=== PATIENT | female | born 1955 | race Caucasian/White ===

== ENCOUNTER → 2016-06-28 07:33 | Outpatient (CLI) | payer BC | END | disposition home or self-care (01) | LOC: D.US 07:33 | DX: R10.11 Right upper quadrant pain (principal) ==

== ENCOUNTER → 2016-07-05 12:46 | Outpatient (CLI) | payer BC | END | disposition home or self-care (01) | LOC: D.NM 12:46 | DX: R10.11 Right upper quadrant pain (principal) ==

== ENCOUNTER 2016-08-16 05:48 | Day surgery (SDC) | payer BC ==
[2016-08-15 12:46] LABS: BASOPHILS 0.6 % (0-2); HEMATOCRIT 37.3 % (36.0-48.0); HEMOGLOBIN 12.1 g/dL (12-16); IMMATURE GRANULOCYTES 0.2 % (0-5); MCHC 32.4 g/dL (31.0-37.0); MCV 95.6 fL (80.0-100.0); MEAN PLATELET VOLUME 11.7 fL (7.4-10.4); MONOCYTES 12.1 % (2-11); NEUTROPHILS 54.1 % (40-80); PLATELET COUNT 206 10x3/uL (130-400); WBC 5.2 10x3/uL (4.8-10.8)
[2016-08-15 12:58] LABS: ANION GAP 8.5 mmol/L (8-16); CALCIUM 8.9 mg/dL (8.5-10.1); CARBON DIOXIDE 32.7 mmol/L (21.0-32.0); CREATININE - SERUM 0.9 mg/dL (0.6-1.3); POTASSIUM - SERUM 4.2 mmol/L (3.5-5.1)
[2016-08-15 14:16] LABS: INR 0.96 (0.85-1.17); PROTIME 12.6 SECONDS (11.6-15.0)
[~2016-08-16] VITALS: Ht 162.6 cm; Wt 71.2 kg
--- NOTE | ~2016-08-16 | OP ---
PATIENT NAME: JAKE MACIEL MEDICAL RECORD: [id number] :51 LOCATION:D.OPS ADMISSION DATE: SURGEON: KAYODE WALTON MD DATE OF OPERATION: 08/16/2016 PREOPERATIVE DIAGNOSIS: Biliary dyskinesia. POSTOPERATIVE DIAGNOSES: 1. Biliary dyskinesia. 2. Gallstones. PROCEDURE: Laparoscopic cholecystectomy. SURGEON: Kayode Walton MD. REPORT OF PROCEDURE: The patient's abdomen was prepped and draped in sterile fashion. A cutdown was made on the superior aspect of the umbilicus, 0 Vicryls were placed in the fascia bilaterally and the fascia was incised with a 15-blade. I then bluntly entered the peritoneal cavity and placed a 12-mm Shira port under direct visualization. A 5-mm trocar was placed in the epigastrium and 2 more 5-mm trocars were placed in the right subcostal region. The gallbladder was grasped and elevated. There was no sign of any inflammatory changes. The cystic artery and cystic duct were dissected free and these were clipped proximally and distally and ligated in standard fashion. Upon palpating the gallbladder, I can feel there was a large stone present in the infundibulum. The gallbladder was then taken off the liver bed using electrocautery and placed into the right upper quadrant. Any bleeding from the liver bed was then treated with electrocautery. We irrigated out the right upper quadrant and assured there was no sign of any bleeding or bile leakage. At this point, the ports and insufflation were then removed and the gallbladder was taken out through the umbilicus. The umbilical fascia was closed with interrupted 0 Vicryls times 3. The wounds were irrigated out with normal saline then infused with 10 mL of 0.25% Marcaine with epinephrine. The skin incisions were all closed with subcutaneous 5-0 Monocryl and dressed appropriately. COMPLICATIONS: None. CONDITION: Stable. ANESTHESIA: General endotracheal and local. BLOOD LOSS: Minimal. TRANSINT:[id number] Voice Confirmation ID: [id number] DOCUMENT ID: [id number] KAYODE WALTON MD CC: PAULA HWANG MD [id number] DICTATION DATE: 08/16/16 1119 [employer] EDITOR: 08/16/162032 [facility] 08/16/16 [id number] [place] [address]
[~2016-08-16 05:48] MED LIST: PROTONIX40 MG PO; VITAMIN D31000 UNI2 PO
[2016-08-16 07:35] VITALS: BP 142/87; Ht 162.6 cm; Wt 71.2 kg
[2016-08-16] MEDS ORDERED: HYDROCODONE-APA1 TAB PO (11:15)
--- NOTE | 2016-08-16 13:30 | NUR ---
UP TO BATHROOM, VOIDED WITHOUT DIFFICULTY. IV REMOVED INTACT.
--- NOTE | 2016-08-16 14:00 | NUR ---
DRESSED. DISCHARGE INSTRUCTIONS GIVEN, DISCHARGED HOME VIA WC.
== END 2016-08-16 14:00 | disposition home or self-care (01) ==
LOC: D.OPS 05:48
PROVIDERS: Anesthesiology; Surgery
DX: K82.8 Other specified diseases of gallbladder (principal); I10 Essential (primary) hypertension; K21.9 Gastro-esophageal reflux disease without esophagitis; Z87.891 Personal history of nicotine dependence; Z01.812 Encounter for preprocedural laboratory examination